=== PATIENT | male | born 1955 | race Caucasian/White ===

== ENCOUNTER 2024-08-10 09:53 | Outpatient (CLI) | payer MEDICARE, BC, SELFPAY ==
--- OUTSIDE RECORDS SUMMARY | 2024-08-10 10:55 | XMS_ITS | Encounter Summary ---
Author Organization [facility] Address [address] [place] [address] Care Team Providers Care Clinical Laboratory Aides Teacher Name Role Phone Van Gallegos MD Primary Care Provider Reason for Visit * Reason Comments Provider Call Encounter Details Date Type Department Care Team (Late st Contact Info) Description 08/10/2024 Telephone [facility] [address] [place] [address] Van Gallegos MD [address] [place] [address] Provider Call Social History Tobacco Use Types Packs/Day Years Used Date Smoking Tobacco: Never Smokeless Tobacco: Former Alcohol Use Standard Drinks/Week Comments Not Currently 0 (1 standard drink = 0.6 oz pur e alcohol) rarely Sex and Gender Information Value Date Recorded Sex Assigned at Male 03/01/2023 8:40 AM HIDES AND SKINS COLORER Legal Sex Male 10:24 PM CDT Gender Identity Male 03/01/2023 8:40 AM HIDES AND SKINS COLORER Sexual Orientation Not on file Occupation Industry Job Start Date Job End Date retired Not on file Not on file Not on file Not on file Not on file Not on file Not on file Not on file Not on file Not on file Not on file documented as of this encounter Miscellaneous Notes * Telephone Encounter - Christine Godfrey - 08/10/2024 10:18 AM CDT Referral faxed as requested by patient/kcc * Telephone Encounter - Josselin Selby - 08/10/2024 10:14 AM CDT Copied from [facility] #[id number]. Topic: [id number] Call >> August 10, 2024 10:13 AM Josselin Barney wrote: Caller is requesting to speak with Clinical Care Team. Caller Name: Keyonna with [facility] Callback Number: [phone] Clinician Type: Other healthcare professional not listed above Call Notes: Patient is in office to see the batch room technician but they do not have an order. Patient is being seen for hearing lost. Is this addressing an immediate patient care need? Yes Transferred to Backline/EMERGENCY MANAGER Line and Christine answered call. documented in this encounter Plan of Treatment Upcoming Encounters Date Type Department Care Team (Late st Contact Info) Description 10/07/2024 10:20 AM CDT Video Visit [facility] Primary Care - [address] [facility] [place] [address] Van Gallegos MD [address] [facility] [place] [address] documented as of this encounter Goals Goal Patient Goal Type Associated Problems Recent Progress Patient-Stated? Author HYPERTENSIO N CARE PLAN GOAL Care Plan JACKIE MYC HYPERTENSION CARE PLAN PROBLEM No Van Gallegos MD documented as of this encounter Visit Diagnoses Not on filedocumented in this encounter Additional Health Concerns Active Problems Noted Date Diagnosed Date JACKIE MYC HYPERTENSION CARE PLAN PROBLEM 3 Assessment Noted Time PHQ-9 Depression Total Score: 2 07/08/19 25 9:22 AM CDT documented as of this encounter Care Teams Clinical Laboratory Aides Teacher Relationship Specialty Start Date End Date Van Gallegos MD [address] [facility] [place] [address] PCP - General Internal Medicine 11/23/22 documented as of this encounter
--- OUTSIDE RECORDS SUMMARY | 2024-08-10 10:55 | XMS_ITS | Encounter Summary ---
Author Organization [facility] Address [address] [place] [id number] Care Team Providers Care Certified Retinal Angiographer Name Role Phone Lauren Macedo MD Primary Care Provider + [phone] Denton Huynh MD Primary Care Provider [phone] Encounter Details Date Type Department Care Team (Late st Contact Info) Description 08/30/2018 Abstract [facility] CONVERSION [address] [place] [address] , Generic Conversion, Social History Tobacco Use Types Packs/Day Years Used Date Smoking Tobacco: Never Assessed Sex and Gender Information Value Date Recorded Sex Assigned at Not on file Legal Sex Male 6:25 PM CDT Gender Identity Not on file Sexual Orientation Not on file documented as of this encounter Plan of Treatment Not on file documented as of this encounter Visit Diagnoses Not on filedocumented in this encounter Care Teams Certified Retinal Angiographer Relationship Specialty Start Date End Date Lauren Macedo MD PCP - General FAMILY PRACTICE 09/04/21 06/11/22 Denton Huynh MD [address] [place] [address] [place] [address] PCP - General FAMILY PRACTICE 06/12/22 documented as of this encounter
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
--- OUTSIDE RECORDS SUMMARY | 2024-08-10 10:55 | XMS_ITS | Clinical Summary ---
Author Organization [facility] Address [facility] [place] [address] Care Team Providers Care Behavioral Sciences Instructor Name Role Phone Denton Huynh MD Primary Care Provider + [phone] Allergies Active Allergy Reactions Criticality Noted Date Comments Nsaids Other (see comment) Low 11/09/2021 Ulcers Medications Multiple Vitamin (DAILY VITAMIN OR) Active Sstlxx-Ohcsh-RCP -Vkl-H2-Cywosc (MOVE FREE JOINT HEALTH ADV + D OR) 03/25/2017 Active acetaminophen (TYLENOL) 500 MG tablet Take 1 tablet (500 mg total) by mouth every 6 (six) hours as needed. Active aspirin 81 MG chewable tablet Chew 1 tablet (81 mg total) by mouth daily. Active modafinil (PROVIGIL) 200 MG tabletIndication s:Sleep apnea, unspecified type Take 1 tablet (200 mg total) by mouth daily as needed. 90 tablet 08/01/2022 Active omeprazole (PRILOSEC) 40 MG capsuleIndicatio ns:Gastroesophag eal reflux disease without esophagitis Take 1 capsule (40 mg total) by mouth daily. 90 capsule 08/01/2022 Active oxyCODONE-acetam inophen (PERCOCET) 7.5-325 MG tabletIndication s:Chronic Pain Take 1 tablet by mouth daily as needed for Pain. Indications: Chronic Pain 30 tablet 08/01/2022 Active Active Problems Problem Noted Date Diagnosed Date Chronic pain of left knee 02/06/2022 Overview (02/06/2022): Chronic issue Manging right now with compression and bracing, chondroitin-glucosamine Has previously had x-rays of his knees, has even undergone steroid shots and Synvisc - not helpful Takes omega-3's, switched from fish oil or Krill oil, not sure if it with his joints or not, he will finish the bottle and then stop it; if knee pain worsens he may restart it, aware of the risk of atrial fibrillation He also wants to make me aware that he occasionally uses his Percocet for pain in his knee, not just his back A&P: Lengthy discussion regarding his pain management, the way I see it is that he gets 30 pills/month to use as needed for various aches and pains of back or knee or shoulder, in addition to zwur-[id number]-[id number] Tylenol, and home exercise program. If his opioid use starts to increase we will need to have a discussion about the risks and benefits of that. We also discussed that as I am leaving the practice and next provider might not agree with continuing his opiate prescription, but I feel that he has done everything that I have asked in terms of PT and xkya-mcj-[id number] medications, he uses the Percocet sparingly, prior to activities that he wants to be able to function through. He is up-to-date on CSA and UDS, will continue to be seen every 3 months for ongoing opioid prescription. We discussed that he may want to consider surgical opinion for his knees, if that is the case then we will update his x-rays but for now we will hold off History of anemia 12/18/2021 Overview (02/06/2022): Has been told at one point that his counts were too low to donate blood, he would like to start doing that again if possible Not sure why his levels would be low, had a colonoscopy about 2 months ago, tubular adenoma was removed but the prep was incomplete Follow-up with Dr. Anguiano appears to have fall between the cracks and so now he is seeing Dr. Cerda with [facility]; he will coordinate future colonoscopies At last visit we meant to check blood work but forgot to get them drawn! A&P: Lets check CBC and if okay he is fine to donate blood History of skin cancer 10/19/2021 Overview (10/19/2021): Used to see Dr. Borja and had Mohs procedure to his right nostril, presumably basal cell cancer In the last few weeks has a new red spot in the area A&P: Refer to Derm Bronchitis due to 2019 novel coronavirus 022 Overview (10/19/2021): Called and within the last few weeks due to persistent coughing, sore throat Treated with steroids, viscous lidocaine, and cough syrup Symptoms are doing a lot better A&P: Lungs sound good today, no further work-up or treatment needed Sleep apnea 09/14/2021 Overview (12/18/2021): Has tried cpap and it kept him awake so previous pcp gave him provigil, only PRN I had encouraged him to pursue treatment for this, not safe to take Provigil in his age group, untreated sleep apnea also dangerous He has had a titration study but is still waiting on his CPAP device A&P: Continue Provigil until he has CPAP Healthcare maintenance 09/14/2021 Overview (09/14/2021): Healthcare Maintenance Colon screening: Hep C: Lung screening: AAA screening: Vaccines: Code status: A&P: Return to clinic next month to follow-up on back pain, if back is better then we will do a yearly checkup, go through the rest of his history and check labs Chronic bilateral low back pain without sciatica Overview (12/18/2021): SEP22: Here for follow-up chronic pain. At last visit we decided to manage this problem medically and we started him on Percocet 7.5 mg, half tab twice daily as needed. Back pain is about the same but function better with the use of pain medicines. For example last weekend had yard sale, normally would have to quit but was able to push through. 30 pills lasted about 6 weeks. He is happy with where things are at. Reports that he previously had been on NSAIDs but has a history of stomach ulcers. A&P: Continue Percocet, CSA and UDS today : Pain is stable, does pretty well if he stays on top of doing home exercises and keeping up with his core strength. Despite that he is needing high doses of Tylenol at times and this seems to be greatly affecting his tinnitus. He feels confident it is the Tylenol, does not have this problem when he skips the medication. Denies any radicular symptoms A&P: Lengthy conversation regarding next steps. He declines moving forward with an MRI and discussing injections, would like to do medical management. Previously was on Percocet and would like to restart that. I am sending oxycodone 7.5 mg, he can take half tab twice daily as needed. He voices understanding that he will need CSA, UDS, and to see me every 3 months. Follow-up in 3 months to take care of that paperwork. In the meantime continue home exercise program. : Finished PT and did get some relief, pain now down to 3-4/10. A&P: Continue home exercise program. Follow-up in 3 months around time of birthday for yearly physical a: Saw partner earlier this month for this problem, put him on Medrol Dosepak, muscle relaxer and started on PT. Reports that the Flexeril made him lightheaded was not able to tolerate it. Doing PT and the exercises do seem to be helping. Pain gets up to a 5 out of 10 in severity. Wonders if he can start hydrocodone which he is previously taken, will use it very rarely. He currently takes 2 extra strength Tylenol tablets twice a day and 1 or 2 Tylenol PMs daily. He is worried about taking more Tylenol and the effect will have on his liver. A&P: Has mechanical back pain, no sciatica. Discussed natural course and history of this problem. Discussed the concerns of starting narcotics. Discussed that there are a lot of other alternate options to add on before we get to that point. Would recommend he finish physical therapy and if he still having a lot of pain come see me in a month for a follow-up neurological exam and see if an MRI is needed. I also discussed that he is perfectly safe to increase his Tylenol, he would be getting the same amount of acetaminophen if we put him on [place] anyway. Would maximize the 4 g daily that he is allowed to take. I have also encouraged him to look into getting a gym membership so that he can do aquatic exercise which he seems to be greatly interested in doing. JUN22: Back pain for > 20 years. 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 No traumatic injury. Re-injured moving furniture approx 2 mo ago. Previous provider gave him flexeril, steroids, and [place]. Intolerant to NSAIDs (GI ulcers). No imaging history. Has not completed any PT. Pain is located in low back. Does not radiate. NO issues with bowel or bladder functions. No paraesthesias. Pain is worse with bending. No issues with twisting. Sleeps in bed at night without difficulty. Assessment & Plan (09/04/2021 11:34 AM CDT): Start PT Steroids and MSK relaxer sent to pharmacy. Immunizations Immunization Administration Dates Next Due H1N1 Injectable 2009 Influenza 04/07/2009 Influenza Adult (Generic) 12/21/2020,,01/27/2019,2018,1 04/23/2016,01/06/2016 Shingrix 07/12/2020,04/27/2020 Family History Medical History Relation Comments Multiple myeloma Father Aneurysm Maternal Grandfather Cancer Mother brain tumor Sister Relation Status Comments Father Maternal Grandfather Mother Sister Social History Tobacco Use Types Packs/Day Years Used Date Smoking Tobacco: Never Smokeless Tobacco: Former Chew Quit: 03/25/2000 Tobacco Cessation:Counseling Given: Not Answered Alcohol Use Standard Drinks/Week Comments Yes 0 (1 standard drink = 0.6 oz pur e alcohol) 3 times a month PHQ-2 Answer Date Recorded Patient Health Questionnaire-2 Score 0 09/26/2022 Sex and Gender Information Value Date Recorded Sex Assigned at Not on file Legal Sex Male 6:25 PM CDT Gender Identity Not on file Sexual Orientation Not on file Last Filed Vital Signs Vital Sign Reading Time Taken Comments Blood Pressure 116/70 09/26/2022 11:35 AM CDT Pulse 77 09/26/2022 11:35 AM CDT Temperature 36.4 C (97.5 F) 09/26/2022 11:35 AM CDT Respiratory Rate 18 09/26/2022 11:35 AM CDT Oxygen Saturation 97% 09/26/2022 11:35 AM CDT Inhaled Oxygen Concentration - - Weight 105.2 kg (232 lb) 09/26/2022 11:35 AM CDT Height 182.9 cm (6') 09/26/2022 11:35 AM CDT Body Mass Index 31.46 09/26/2022 11:35 AM CDT Plan of Treatment Health Maintenance Due Date Last Done Comments Colorectal Cancer Screening Colonoscopy (10 Years) 1957 Hepatitis C 1975 DTaP, Tdap and Td Vaccines (1 - Tdap) 01/25/1976 Pneumococcal Vaccine: 50+ Years (1 of 1 - PCV) 2007 Annual Medicare Wellness Visit 2022 COVID-19 Vaccine ( - season) 2023 07/13/2021, 02/09/2021, 06/25/2020, Additional history exists PHQ-2 (Physician [place]) 03/25/2024 09/26/2022 RSV Immunization or 60+ Years (1 - 1-dose 75+ series) 01/25/2032 Zoster Vaccines Completed 07/12/2020, 04/27/2020 Meningococcal B Vaccine Aged Out No l onger eligible based on patient's age to complete this topic Meningococcal Vaccine Aged Out No jeny kaia eligible based on patient's age to complete this topic RSV Immunizations Under 20 Months Aged Out No longer eligible based on patient's age to complete this topic Procedures Procedure Name Priority Date/Time Associated Diagnosis Comments COLONOSCOPY Routine BUSINESS OPERATIONS CONSULTANT from Last 3 Months or Most Recently Relevant to Health Maintenance Results * Colonoscopy ( BUSINESS OPERATIONS CONSULTANT) Narrative [facility] TO EPIC CONVERSION - BUSINESS OPERATIONS CONSULTANT Documented hx of procedure Procedure Note Iza Yuan MD - 01/26/2018 Documented hx of procedure us Generic Conversion Md YUAN GI PROCEDURE ORDERABLES Final Result [facility] TO EPIC CONVERSION from Last 3 Months or Most Recently Relevant to Health Maintenance Insurance [facility] MEDICARE Care Teams Behavioral Sciences Instructor Relationship Specialty Start Date End Date Denton Huynh MD [address] [place] [address] [place] [address] PCP - General FAMILY PRACTICE 06/12/22
--- OUTSIDE RECORDS SUMMARY | 2024-08-10 10:55 | XMS_ITS | Encounter Summary ---
Author Organization [facility] Address [address] [place] [id number] Care Team Providers Care Salon/Spa Manager Name Role Phone Lauren Macedo MD Primary Care Provider + [phone] Denton Huynh MD Primary Care Provider [phone] Encounter Details Date Type Department Care Team (Late Contact Info) Description 09/27/2021 [facility] Message [facility] INFO [facility], [facility] Provider Patient Amendment Request Social History Tobacco Use Types Packs/Day Years Used Date Smoking Tobacco: Never Smokeless Tobacco: Former Chew Quit: 03/25/2000 Alcohol Use Standard Drinks/Week Comments Yes 0 (1 standard drink = 0.6 oz pur e alcohol) 3 times a month PHQ-2 Answer Date Recorded PHQ-2 Score - If the patient scores above 3, please move on to questions 3-9 0 09/04/2021 Sex and Gender Information Value Date Recorded Sex Assigned at Not on file Legal Sex Male 6:25 PM CDT Gender Identity Not on file Sexual Orientation Not on file COVID-19 Exposure Response Date Recorded In the last 10 days, have yo u been in contact with someone who was confirmed or suspected to have Coronavirus/COVID-19? No / Unsure 09/14/2021 9:43 AM CDT documented as of this encounter Plan of Treatment Not on file documented as of this encounter Visit Diagnoses Not on filedocumented in this encounter Care Teams Salon/Spa Manager Relationship Specialty Start Date End Date Lauren Macedo MD PCP - General FAMILY PRACTICE 09/04/21 06/11/22 Denton Huynh MD [address] [place] [address] [place] [address] PCP - General FAMILY PRACTICE 06/12/22 documented as of this encounter
== END 2024-08-10 09:54 | disposition home or self-care (01) ==
LOC: CHSAUDIO 10:19
DX: H90.3 Sensorineural hearing loss, bilateral (principal)
CPT/HCPCS: 92557; 92567